=== PATIENT | male | born 1995 | race Caucasian/White ===

== ENCOUNTER 2024-05-08 13:33 | Emergency (ER) | payer SELFPAY ==
[2024-05-08] MEDS ORDERED: METHYLPREDNISOLONE 125 MG INJ ONE (13:57)
--- NOTE | 2024-05-08 14:00 | EDPHYS ---
Physician Documentation [facility] Name: Bonifacio Mcdaniel Age: 28 yrs Sex: Male : 1995 Arrival Date: 05/08/2024 Time: 13:33 Bed 11 Private MD: ED Physician Danny Judd HPI: 05/08 13:55 This 28 yrs old Male presents to ER via Ambulatory with complaints of Rash. rn 13:55 The patient's rash thought to be caused by Dermatitis. The rash is located on the body rn diffusely. Onset: The symptoms/episode began/occurred 5 day(s) ago. Severity of symptoms: At their worst the symptoms were moderate in the emergency department the symptoms are unchanged. Treatment given at home: OTC lotion/cream. The patient has not experienced similar symptoms in the past. Patient reports doing yard work this past weekend, rash that started on his left forearm now spread to torso. Itches. No fever or chills. Thinks might of gotten into some poison osna. Historical: - Allergies: 13:41 No Known Allergies; aa5 - PMHx: 13:41 None; aa5 - Immunization history:: Adult Immunizations unknown. - Infectious Disease History:: Denies. - Social history:: Smoking status: Patient reports the use of cigarette tobacco products, denies chronic smoking, but will smoke occasionally. - Family history:: not pertinent. - Hospitalizations: : No recent hospitalization is reported. ROS: 13:55 Constitutional: Negative for fever, chills, and weight loss, Skin: Positive for skin rn rash and itching Exam: 13:55 Constitutional: This is a well developed, well nourished patient who is awake, alert, rn and in no acute distress. Skin: Warm, erythematous maculopapular rash over arms and torso. No bulla. No desquamation. No fluctuance. Vital Signs: 13:41 BP 149 / 72; Pulse 67; Resp 18 S; Temp 97.2(TE); Pulse Ox 98% on R/A; Weight 86.18 kg aa5 (R); Height 6 ft. 2 in. (R); 14:24 BP 138 / 70; Pulse 64; Resp 16; Pulse Ox 99% ; ko1 13:41 Body Mass Index 24.39 (86.18 kg, 187.96 cm) aa5 MDM: 13:37 Patient medically screened. rn 13:55 Differential diagnosis: allergic reaction, Contact dermatitis. Data reviewed: vital rn signs, nurses notes, and as a result, I will discharge patient. Counseling: I had a detailed discussion with the patient and/or guardian regarding the historical points, exam findings, and any diagnostic results supporting the discharge/admit diagnosis, the need for outpatient follow up, to return to the emergency department if symptoms worsen or persist or if there are any questions or concerns that arise at home. Administered Medications: 14:03 Drug: MethylPREDNISolone Sodium Succinate IM 125 mg IM once Route: IM; Site: left ko1 deltoid; 14:19 Follow up: Response: No adverse reaction ko1 Disposition Summary: 05/08/24 14:00 Discharge Ordered Notes: Location: Home rn Problem: new rn Symptoms: have improved rn Condition: Stable rn Diagnosis - Allergic contact dermatitis due to plants, except food rn Followup: rn - With: Private Physician - When: As needed - Reason: Recheck today's complaints, Re-evaluation by your physician Discharge Instructions: - Discharge Summary Sheet rn - Poison Sona Dermatitis rn Forms: - Medication Reconciliation Form rn - Antibiotic equine internship - Prescription Opioid Use rn - Patient Portal Instructions rn - Leadership Thank You Letter rn - Work release form ko1 Prescriptions: - Hydroxyzine HCl 50 mg Oral Tablet - take 1 tablet ORAL route every 8 hours As needed; 20 tablet; Refills: 0, rn Product Selection Permitted - Medrol (Rajiv) 4 mg Oral Tablets, Dose Pack - take 1 tablet ORAL route as directed - follow package instructions; 1 packet; rn Refills: 0, Product Selection Permitted Signatures: Danny Judd MD MD rn Calderon, Audri RN RN aa5 Delmi Bella RN RN ko1
--- NOTE | 2024-05-08 14:00 | ER ---
Nurse's Notes [facility] Name: Bonifacio Mcdaniel Age: 28 yrs Sex: Male : 1995 Arrival Date: 05/08/2024 Time: 13:33 Bed 11 Private MD: Diagnosis: Allergic contact dermatitis due to plants, except food Presentation: 05/08 13:41 Chief complaint: Patient states: "I was doing yard work last week and Sunday I got this aa5 rash all over". Coronavirus screen: At this time, the client does not indicate any symptoms associated with coronavirus-19. Ebola Screen: Patient denies travel to an Ebola-affected area in the 21 days before illness onset. Initial Sepsis Screen: Does the patient meet any 2 criteria? No. Patient's initial sepsis screen is negative. Does the patient have a suspected source of infection? No. Patient's initial sepsis screen is negative. Risk Assessment: Do you want to hurt yourself or someone else? Patient reports no desire to harm self or others. 13:41 Method Of Arrival: Ambulatory aa5 13:41 Acuity: JOSELINE 4 aa5 13:41 Onset of symptoms was April 2024. aa5 Triage Assessment: 14:25 General: Appears in no apparent distress. Behavior is calm, cooperative, appropriate ko1 for age. Historical: - Allergies: 13:41 No Known Allergies; aa5 - PMHx: 13:41 None; aa5 - Immunization history:: Adult Immunizations unknown. - Infectious Disease History:: Denies. - Social history:: Smoking status: Patient reports the use of cigarette tobacco products, denies chronic smoking, but will smoke occasionally. - Family history:: not pertinent. - Hospitalizations: : No recent hospitalization is reported. Screenin:24 [facility] ED Fall Risk Assessment (Adult) History of falling in the last 3 months, ko1 including since admission No falls in past 3 months (0 pts) Confusion or Disorientation No (0 pts) Intoxicated or Sedated No (0 pts) Impaired Gait No (0 pts) Mobility Assist Device Used No (0 pt) Altered Elimination No (0 pt) Score/Fall Risk Level 0 - 2 = Low Risk Oriented to surroundings, Maintained a safe environment, Educated pt \\T\\ family on fall prevention, incl call for assistance when getting out of bed, Hourly rounding (assess needs \\T\\ fall precautionary measures) done. Abuse screen: Denies threats or abuse. Denies injuries from another. Nutritional screening: No deficits noted. Tuberculosis screening: No symptoms or risk factors identified. Assessment: 14:24 Pain: Denies pain. ko1 Vital Signs: 13:41 BP 149 / 72; Pulse 67; Resp 18 S; Temp 97.2(TE); Pulse Ox 98% on R/A; Weight 86.18 kg aa5 (R); Height 6 ft. 2 in. (R); 14:24 BP 138 / 70; Pulse 64; Resp 16; Pulse Ox 99% ; ko1 13:41 Body Mass Index 24.39 (86.18 kg, 187.96 cm) aa5 ED Course: 13:37 Patient arrived in ED. im 13:37 Danny Judd MD is Attending Physician. rn 13:40 Arm band placed on. aa 13:42 Triage completed. [facility] 13:46 Delmi Bella, RN is Primary Nurse. ko1 14:24 Patient has correct armband on for positive identification. Bed in low position. Call ko1 light in reach. Provided Education on: meds. Door closed. Noise minimized. Lights dimmed. 14:24 No provider procedures requiring assistance completed. Patient did not have IV access ko1 during this emergency room visit. Administered Medications: 14:03 Drug: MethylPREDNISolone Sodium Succinate IM 125 mg IM once Route: IM; Site: left ko deltoid; 14:19 Follow up: Response: No adverse reaction ko1 Medication: 14:24 VIS not applicable for this client. ko1 Outcome: 14:00 Discharge ordered by . rn 14:24 Discharged to home ambulatory, ko1 14:24 Condition: stable 14:24 Discharge instructions given to patient, Instructed on discharge instructions, follow up and referral plans. medication usage, Demonstrated understanding of instructions, follow-up care, medications, Prescriptions given X 2, 14:26 Patient left the ED. ko1 Signatures: Danny Judd MD MD rn Calderon, Audri, RN RN [facility] Delmi Bella RN RN ko1 Alexa Pride
[2024-05-08 15:34] VITALS: TEMP 97.2
[2024-05-08 15:36] VITALS: BP 138/70; O2SAT 99
== END 2024-05-08 14:26 | disposition home or self-care (01) ==
LOC: ER 13:33
DX: L23.7 Allergic contact dermatitis due to plants, except food (principal)
CPT/HCPCS: J2919

== ENCOUNTER 2024-12-02 08:13 | Emergency (ER) | payer OTHER, SELFPAY ==
--- OUTSIDE RECORDS SUMMARY | 2024-12-02 08:16 | XMS REPORT | Continuity of Care Document ---
Author Name Unknown Address [address] [facility] [address] [place] [address] [facility] Address [address] [place] [address] Care Team Providers Care Operations Research Group Manager Name Role Phone PCP, PATIENT DOES NOT HAVE A Primary Care Physic stephanie Unavailable AUDREY BOLAÑOS Attending Clinician Unavailable AUDREY BOLAÑOS Attending Clinician Unavailable Fede SINGH Attending Clinician Unavailable Fede SINGH Attending Clinician Unavailable Fede Ware Attending Clinician [phone] SANCHO EMERY Attending Clinician Unavailable Sancho Emery MD Attending Clinician [phone] Little THORNTON, Aminata Cheney Attending Clinician Unavailable Noreen Ignacio Attending Clinician [phone] Rowan Greene NP Attending Clinician [phone] SANCHO EMERY Admitting Clinician Unavailable Payers Payer Name Policy Type Policy Number Effective Date Expirati on Date Source Intense [facility] [id number] 2024 00:00:00 Problems Condition Name Condition Details Condition Category Status Onset Date Resolution Date Last Treatment Date Treating Clinician Comments Source No known active problems No known active problems Disease [facility] Allergies, Adverse Reactions, Alerts Allergy Name Allergy Type Status Severity Reaction(s) Onset Date Inactive Date Treating Clinician Comments Source NO KNOWN ALLERGIE S Drug Class Active [facility] Social History Social Habit Start Date Stop Date Quantity Comments Source Sexual orientation U [facility] Exposure to SARS-CoV-2 (event) 2022-05-17 00:00:00 2022-05-27 21:35:00 Not sure [facility] Sex assigned at 1995 00:00:00 1995 00:00:00 [facility] Smoking Status Start Date Stop Date Source Tobacco smoking consumption unknown [facility] Medications Ordered Medication Name Filled Medication Name Start Date Stop Date Current Medication? Ordering Clinician Indication Dosage Frequency Signature (SIG) Comments Components Source acetaminoph en (TYLENOL) tablet 1,000 mg 2021-07 0 03:45: 00 05-28 03:39 :00 No 1000mg 1,000 mg, Oral, ONCE, 1 dose, On 05/27/22 at 2245, [facility] LORazepam (ATIVAN) tablet 1 mg 2019-07 07:45: 00 06-08 07:38 :00 No 1mg 1 mg, Oral, ONCE, 1 dose, 06/08/20 at 0145, [facility] NaCl 0.9% (NS) IV infusion 1,000 mL 2019-07 07:15: 00 06-08 07:33 :00 No 1000mL at 500 mL/hr, IV Infusion, ONCE, 1 dose, 06/08/20 at 0115, [facility] fludrocorti sone (FLORINEF) 0.1 mg tablet 2019-07 06:03: 08 06-08 00:00 :00 No .1mg Take 0.1 mg by mouth daily. [facility] metoprolol succinate XL (TOPROL XL) 25 mg 24 hr tablet 2019-07 06:03: 05 06-08 00:00 :00 No 25mg Take 25 mg by mouth daily. [facility] No known medications 2019-07 00:04: 59 No No known medication s [facility] aspirin 81 mg EC tablet 2015-07 00:00: 00 06-08 00:00 :00 No 81mg Take 1 tablet by mouth daily. [facility] No known medications No Un deepthi [facility] Vital Signs Vital Name Observation Time Observation Value Comments S stiven Systolic blood pressure 2024-04-10 15:33:00 139 mm[Hg] [facility] Diastolic blood pressure 2024-04-10 15:33:00 96 mm[Hg] [facility] Heart rate 2024-04-10 15:33:00 86 /min Unive [facility] Body temperature 2024-04-10 15:33:00 37.11 [facility] Respiratory rate 2024-04-10 15:33:00 14 /min [facility] Body height 2024-04-10 15:33:00 185.4 cm [facility] Body weight 2024-04-10 15:33:00 84.823 kg [facility] BMI 2024-04-10 15:33:00 24.67 kg/m2 [facility] Oxygen saturation in Arterial blood by Pulse oximetry 2024-04-10 15:33:00 99 /min [facility] Systolic blood pressure 2022-05-28 04:01:00 112 mm[Hg] [facility] Diastolic blood pressure 2022-05-28 04:01:00 63 mm[Hg] [facility] Heart rate 2022-05-28 04:01:00 85 /min Unive [facility] Respiratory rate 2022-05-28 04:01:00 16 /min [facility] Oxygen saturation in Arterial blood by Pulse oximetry 2022-05-28 04:01:00 95 /min [facility] Body temperature 2022-05-28 04:00:00 36 [facility] Body height 2022-05-28 02:40:58 188 cm [facility] Body weight 2022-05-28 02:40:58 86.183 kg [facility] BMI 2022-05-28 02:40:58 24.39 kg/m2 [facility] Systolic blood pressure 2020-06-08 08:00:00 127 mm[Hg] [facility] Diastolic blood pressure 2020-06-08 08:00:00 77 mm[Hg] [facility] Heart rate 2020-06-08 08:00:00 58 /min [facility] Respiratory rate 2020-06-08 08:00:00 13 /min [facility] Oxygen saturation in Arterial blood by Pulse oximetry 2020-06-08 08:00:00 98 /min [place] Body temperature 2020-06-08 06:01:00 37.11 [facility] Body height 2020-06-08 06:01:00 182.9 cm [facility] Body weight 2020-06-08 06:01:00 82.101 kg [facility] BMI 2020-06-08 06:01:00 24.55 kg/m2 [facility] Procedures Procedure Date / Time Performed Performing Clinicia n Source CT CERVICAL SPINE WO CONTRAST 2022-05-28 03:22:00 [address] [facility] CT HEAD WO CONTRAST 2022-05-28 03:22:00 Sancho Emery [facility] NOTICE OF PRIVACY PRACTICES 2022-05-28 02:31:10 Doctor Unassigned, [facility] CONSENT/REFUSAL FOR DIAGNOSIS AND TREATMENT 2022-05-28 02:30:01 Doctor Unassigned, [facility] XR CHEST 1 VW 2020-06-08 06:45:33 Rowan Greene [facility] CBC WITH DIFF 2020-06-08 06:26:00 Rowan Greene [facility] URINALYSIS 2020-06-08 06:26:00 Rowan Greene [facility] LIPASE 2020-06-08 06:26:00 Rowan Greene [facility] TROPONIN I 2020-06-08 06:26:00 Rowan Greene [facility] HEPATIC FUNCTION PANEL (82214) (ALB,T.PRO,BILI T,BU/BC,ALT,AST,ALK PHOS) 2020-06-08 06:26:00 Rowan Greene [facility] BASIC METABOLIC PANEL (NA, K, CL, CO2, GLUCOSE, BUN, CREATININE, CA) 2020-06-08 06:26:00 Rowan Greene [facility] NOTICE OF PRIVACY PRACTICES 2020-06-08 05:54:55 Doctor Unassigned, [facility] CONSENT/REFUSAL FOR DIAGNOSIS AND TREATMENT 2020-06-08 05:54:35 Doctor Unassigned, [facility] Encounters Start Date/Time End Date/Time Encounter Type Admission Type Attending [facility] Facility Care Department Encounter ID Source 2024-10-06 05:46:00 2024-10-06 06:51:00 Emergency Arjun MAMIAUDREY TIMOTHY [facility] ERT [id number] [facility] 2024-04-10 10:35:00 2024-04-10 12:05:00 Emergency X Fede SINGH K [facility] ERT [id number] [facility] 2024-04-10 10:35:00 2024-04-10 12:05:00 Emergency Fede Singh [facility] 1..114 [id number] [id number] [id number] [facility] 2022-05-27 21:41:00 2022-05-27 23:14:00 Emergency SANCHO MUJICA [facility] ERT [id number] [facility] 2022-05-27 21:41:00 2022-05-27 23:14:00 Emergency Sancho Emery [facility] 1..114 [id number] [id number] [id number] [facility] 2022-05-27 00:00:00 2022-05-27 00:00:00 Nurse Triage Aminata Fitch [facility] 1..114 [id number] [id number] [id number] [facility] 2020-07-08 00:00:00 2020-07-08 00:00:00 Letter (Out) Noreen Mendoza [facility] 1.2.114 [id number] 4.2.7.2.686 [id number] [facility] 2020-06-08 00:15:00 2020-06-08 03:46:00 Emergency Rowan Greene [facility] [id number] [id number] [id number] [facility] 2020-06-07 23:53:00 2020-06-07 23:53:00 Emergency X [facility] ERT [id number] [facility] Results Test Description Test Time Test Comments Results Result Co mments Source [facility]00* Test Item Value Reference Range Interpretation Comme nts APPEARANCE (test code = 3509358757) Clear Clear COLOR (test code = 2101170121) Straw Yellow A PH (test code = 6421037399) 4.8-8.0 SP GRAVITY (test code = 8591602882) 1.003-1.030 GLU U QUAL (test code = 3056350062) Normal Normal BLOOD (test code = 2584612880) Negative Negative KETONES (test code = 1668865738) Negative Negative PROTEIN (test code = 2887-8) Negative Negative UROBILIN (test code = 1321190643) Normal Normal BILIRUBIN (test code = 3722206161) Negative Negative NITRITE (test code = 3261938085) Negative Negative LEUK DARRION (test code = 2797502345) Negative Negative RBC/HPF (test code = 3101813731) See_Comment [Automated [employer]] The system which generated this result transmitted reference range: 0 - 3 HPF. The reference range was not used to interpret this result as normal/abnormal. WBC/HPF (test code = 6136953482) See_Comment [Automated [employer]] The system which generated this result transmitted reference range: 0 - 5 HPF. The reference range was not used to interpret this result as normal/abnormal. BACTERIA (test code = 6889978934) Negative Negative AMORPHOUS (test code = 8296520584) Rare Rare HPF Lab Interpretation (test code = 07170-1) [facility]normal [facility] (NA, K, CL, CO2, GLUCOSE, BUN, CREATININE, CA)2020-06-08 06:52:00* Test Item Value Reference Range Interpretation Comme nts NA (test code = 7409701957) 139 mmol/L 135-145 K (test code = 0415280568) 3.9 mmol/L 3.5-5 CL (test code = 5896667740) 102 mmol/L 98-108 CO2 TOTAL (test code = 4315654570) 30 mmol/L 23-31 AGAP (test code = 2903621157) 2-16 BUN (test code = 7928920710) 13 mg/dL 7-23 GLUCOSE (test code = 7807953512) 100 mg/dL 70-110 CREATININE (test code = 1214418673) 0.86 mg/dL 0.6-1.25 CALCIUM (test code = 7899614009) 10.1 mg/dL 8.6-10.6 eGFR Calculation (Non-) (test code = 9980767718) mL/min/1.73m2 eGFR Calculation () (test code = 1349339699) mL/min/1.73m2 [place] (test code = TR[place]ON) Association of Glomerular Filtration Rate (GFR) and Staging of Kidney Disease* + -+ + ---+| GFR (mL/min/1.73 m2) ?| With Kidney Damage ?| ?Without Kidney Damage+ -------+ ------+ ---------+| ?>90 ?| ?Stage one ?| ? Normal ?+ --+ -+ ----+| ?60-89 ?| ?Stage two ?| ? Decreased GFR ? + -+ + ---+| ?30-59 ?| ?Stage three ?| ? Stage three ? + -+ + ---+| ?15-29 ?| ?Stage four ? | ? Stage four ?+ --+ -+ ----+| ?<15 (or dialysis) ? ?| ?Stage five ? | ? Stage five ?+ --+ -+ ----+ *Each stage assumes the associated GFR level has been in effect for at least three months. ?Stages 1 to 5, with or without kidney disease, indicate chronic kidney disease. Notes: Determination of stages one and two (with eGFR >59mL/min/1.73 m2) requires estimation of kidney damage for at least three months as defined by structural or functional abnormalities of the kidney, manifested by either:Pathological abnormalities or Markers of kidney damage (including abnormalities in the composition of the blood or urine or abnormalities in imaging tests). [facility] (ALB, T.PRO, BILI T, BU/BC, ALT, AST, ALK PHOS)2020-06-08 06:52:00* Test Item Value Reference Range Interpretation Comme nts TOTAL BILI (test code = 6838208763) 0.6 mg/dL 0.1-1.1 BILI UNCON (test code = 7531569169) 0.5 mg/dL 0.1-1.1 BILI CONJ (test code = 7529607933) 0.0 mg/dL 0-0.3 T PROTEIN (test code = 4491578302) 7.6 g/dL 6.3-8.2 ALBUMIN (test code = 8842510284) 4.7 g/dL 3.5-5 ALK PHOS (test code = 4449000715) 66 U/L 34-122 ALTv (test code = 1742-6) 22 U/L 5-50 AST(SGOT) (test code = 8983922376) 27 U/L 13-40 Lab Interpretation (test cod e = 94299-0) Normal [facility] [id number] 06:52:00* Test Item Value Reference Range Interpretation Comme nts LIPASE (test code = 6830246853) 62 U/L 0-220 Lab Interpretation (test cod e = 12939-9) Normal [facility] with [id number] 06:38:00* Test Item Value Reference Range Interpretation Comme nts WBC (test code = 6690-2) See_Comment [[employer]ated [employer]] The system which generated this result transmitted reference range: 4.20 - 10.70 10*3/?L. The reference range was not used to interpret this result as normal/abnormal. RBC (test code = 789-8) See_Comment [[employer]ated [employer]] The system which generated this result transmitted reference range: 4.26 - 5.52 10*6/?L. The reference range was not used to interpret this result as normal/abnormal. HGB (test code = 718-7) 15.7 g/dL 12.2-16.4 HCT (test code = 4544-3) 43.4 % 38.4-49.3 MCV (test code = 787-2) 86.3 fL 81.7-95.6 MCH (test code = 785-6) 31.2 pg 26.1-32.7 MCHC (test code = 786-4) 36.2 g/dL 31.2-35 H RDW-SD (test code = 42189-4) 34.9 fL 38.5-51.6 L RDW-CV (test code = 788-0) 11.1 % 12.1-15.4 L PLT (test code = 777-3) See_Comment [Automated messa ge] The system which generated this result transmitted reference range: 150 - 328 10*3/?L. The reference range was not used to interpret this result as normal/abnormal. MPV (test code = 08069-6) 9.3 fL 9.8-13 L NRBC/100 WBC (test code = 8299372295) See_Comment [Automated [employer]] The system which generated this result transmitted reference range: 0.0 - 10.0 /100 WBCs. The reference range was not used to interpret this result as normal/abnormal. NRBC x10^3 (test code = 7691297386) <0.01 See_Comment [Automated messa ge] The system which generated this result transmitted reference range: 10*3/?L. The reference range was not used to interpret this result as normal/abnormal. GRAN MAT (NEUT) % (test code = 770-8) 43.0 % IMM GRAN % (test code = 5494883422) 0.20 % LYMPH % (test code = 736-9) 46.0 % MONO % (test code = 5905-5) 9.2 % EOS % (test code = 713-8) 1.1 % BASO % (test code = 706-2) 0.5 % GRAN MAT x10^3(ANC) (test code = 3941176793) 2.73 10*3/uL 1.99-6.95 IMM GRAN x10^3 (test code = 0039100410) <0.03 0-0.06 LYMPH x10^3 (test code = 731-0) 2.91 10*3/uL 1.09-3.23 MONO x10^3 (test code = 742-7) 0.58 10*3/uL 0.36-1.02 EOS x10^3 (test code = 711-2) 0.07 10*3/uL 0.06-0.53 BASO x10^3 (test code = 704-7) 0.03 10*3/uL 0.01-0.09 Lab Interpretation (test code = 15085-0) Abnormal [facility] Notes Date/Time Note Provider Source 2024-04-10 11:50:00 Written/verbal d/c instructions, out of er no distress [facility] 2024-04-10 10:32:53 Nathalia Blood is a 28 year old male c/o hemorrhoid pain and bleeding for 4 days T Brittney Casiano RN [facility]"
[2024-12-02] MEDS ORDERED: ONDANSETRON 4 MG/2 ML VIAL ONE (08:45)
[2024-12-02] MEDS ORDERED: KETOROLAC 30 MG/ML INJ ONE (08:45)
[2024-12-02] MEDS ORDERED: NA CHLORIDE 0.9% 1,000 ML ONE (08:45)
[2024-12-02 09:13] LABS: Specific Gravity < 1.005 (1.005-1.030); Urine Bilirubin NEGATIVE (Negative); Urine Blood Negative (Negative); Urine Clarity Clear (Clear); Urine Color Colorless (Yellow); Urine Glucose NEGATIVE (Negative); Urine Ketones NEGATIVE (Negative); Urine Microscopic Reflex YN NO UMIC; Urine Nitrite NEGATIVE (Negative); Urine Protein NEGATIVE (Negative); Urine Urobilinogen Normal (Normal); Urine pH 6.5 (5.0-7.0)
[2024-12-02 09:15] LABS: Absolute Lymphocytes (CBC) 1.9 K/uL (0.7-4.9); Absolute Monocytes 0.5 K/uL (0.1-1.3); Absolute Neutrophil 2.6 K/uL (1.8-8.0); Basophils % 0.4 % (0-1.3); Eosinophils % 0.9 % (0-4.4); Hematocrit 44.5 % (39.6-49.0); Hemoglobin 16.1 g/dL (13.6-17.9); MCH 32.1 pg (27.0-35.0); MCHC 36.3 g/dL (32.0-36.0); MCV 88.5 fL (80-100); MPV 7.4 fL (7.6-11.3); Monocytes % 9.4 % (3.3-12.3); Neutrophils % 52.3 % (41.7-73.7); Nucleated Red Blood Cells % 0.1 % (0-0); Platelets 255 thou/uL (152-406); RBC Red Blood Cell Count 5.03 M/uL (4.33-5.43); Red Cell Distribution Width 12.6 % (12.1-15.2)
[2024-12-02 09:30] LABS: Albumin 4.1 g/dL (3.4-5.0); Albumin/Globulin Ratio 1.3 (1.1-1.8); Anion Gap 7.6 mEq/L (5.0-15.0); Bilirubin Total 0.5 mg/dL (0.2-1.0); Globulin 3.1 g/dL (2.3-3.5); Potassium 3.6 mEq/L (3.5-5.1); Protein, Total 7.2 g/dL (6.4-8.2)
--- NOTE | 2024-12-02 10:11 | RAD REPORT ---
EXAMINATION: CTA CHEST PE CLINICAL INDICATION: CHEST PAIN TECHNIQUE: This examination was performed according to an angiographic protocol with 3D post-processi ng. This involves 3D reconstructions, MIPs, volume rendered images and/or shaded surface rendering. One or more of the following dose reduction techniques were used: Automated exposure control, adjustm ent of the mA and/or kV according to patient size, and/or iterative reconstruction. Unless otherwise specified, incidental findings do not require dedicated imaging follow-up. COMPARISON: No prior exam. FINDINGS: PULMONARY ARTERIES: Normal caliber. No evidence of pulmonary emboli to the subsegmental level. THORACIC AORTA: Normal caliber and configuration. LUNGS: No evidence of airspace or interstitial process. No nodules. PLEURA: No pleural effusion. No pneumothorax. MEDIASTINUM AND LYMPH NODES: No mediastinal mass or fluid collection. Normal size mediastinal, hilar, and axillary lymph nodes. OSSEOUS STRUCTURES AND CHEST WALL: Intact. UPPER ABDOMEN: No significant abnormalities. IMPRESSION: No evidence of pulmonary emboli to the subsegmental level.
--- NOTE | 2024-12-02 10:21 | RAD REPORT ---
EXAMINATION: CT ABDOMEN AND PELVIS WITH CONTRAST CLINICAL INDICATION: ABD PAIN TECHNIQUE: CT abdomen and pelvis was performed, after the administration of IV contrast, as per [facility] protocol. Axial, sagittal and coronal reconstructions were obtained. One or more of the following dose reduction techniques were used: Automated exposure control, adjustment of the mA and k V according to patient size, and iterative reconstruction. Unless otherwise specified, incidental findings do not require dedicated imaging follow-up. COMPARISON: No prior exam. FINDINGS: LOWER CHEST: The visualized lung bases are clear. LIVER: Normal in size and contour. No focal lesion. Grossly unremarkable gallbladder. SPLEEN: Normal size. No focal lesion. PANCREAS: No mass, ductal dilation, or karena-pancreatic fluid. ADRENALS: Normal; no mass. KIDNEYS: Normal size and contour. No hydronephrosis. 23 mm benign cyst right kidney. GASTROINTESTINAL TRACT: No evidence of free air, significant intra-abdominal free fluid, bowel obstru ction or abscess. APPENDIX: Normal appendix. LYMPH NODES: No lymphadenopathy. MUSCULOSKELETAL: No acute or suspicious osseous abnormality. ADDITIONAL FINDINGS: None. IMPRESSION: No acute or concerning abnormalities seen in the abdomen or pelvis.
--- NOTE | 2024-12-02 10:35 | EDPHYS ---
Physician Documentation [facility] Name: Bonifacio Mcdaniel Age: 29 yrs Sex: Male : 1995 Arrival Date: 12/02/2024 Time: 08:13 Bed 14 Private MD: ED Physician Herberth Almonte HPI: 12/02 10:31 This 29 yrs old Male presents to ER via Ambulatory with complaints of Abdominal Pain. david 10:31 The patient presents with pain that is acute, with no known mechanism of injury. The david symptoms are located in the low back. Historical: - Allergies: 08:31 No Known Allergies; hb - Home Meds: 08: None [Active]; hb - PMHx: 08: None; hb - PSHx: 08: None; hb - Immunization history:: Adult Immunizations up to date. - Infectious Disease History:: Denies. - Social history:: Smoking status: Patient denies any tobacco usage or history of. ROS: 10:32 Constitutional: Negative for fever, chills, and weight loss, Eyes: Negative for injury, david pain, redness, and discharge, ENT: Negative for injury, pain, and discharge, Neck: Negative for injury, pain, and swelling, Cardiovascular: Negative for chest pain, palpitations, and edema, Respiratory: Negative for shortness of breath, cough, wheezing, and pleuritic chest pain, Back: Negative for injury and pain, : Negative for injury, bleeding, discharge, and swelling, MS/Extremity: Negative for injury and deformity, Skin: Negative for injury, rash, and discoloration, Neuro: Negative for headache, weakness, numbness, tingling, and seizure, Psych: Negative for depression, anxiety, suicide ideation, homicidal ideation, and hallucinations, Allergy/Immunology: Negative for hives, rash, and allergies, Endocrine: Negative for neck swelling, polydipsia, polyuria, polyphagia, and marked weight changes, Hematologic/Lymphatic: Negative for swollen nodes, abnormal bleeding, and unusual bruising, 10:32 Abdomen/GI: Positive for abdominal pain, of the anterior aspect of right lateral abdomen, posterior aspect of right lateral abdomen and left upper quadrant, Exam: 10:32 Constitutional: This is a well developed, well nourished patient who is awake, alert, david and in no acute distress. Head/Face: Normocephalic, atraumatic. Eyes: Pupils equal round and reactive to light, extra-ocular motions intact. Lids and lashes normal. Conjunctiva and sclera are non-icteric and not injected. Cornea within normal limits. Periorbital areas with no swelling, redness, or edema. ENT: Nares patent. No nasal discharge, no septal abnormalities noted. Tympanic membranes are normal and external auditory canals are clear. Oropharynx with no redness, swelling, or masses, exudates, or evidence of obstruction, uvula midline. Mucous membranes moist. Neck: Trachea midline, no thyromegaly or masses palpated, and no cervical lymphadenopathy. Supple, full range of motion without nuchal rigidity, or vertebral point tenderness. No Meningismus. Chest/axilla: Normal chest wall appearance and motion. Nontender with no deformity. No lesions are appreciated. Cardiovascular: Regular rate and rhythm with a normal S1 and S2. No gallops, murmurs, or rubs. Normal PMI, no JVD. No pulse deficits. Respiratory: Lungs have equal breath sounds bilaterally, clear to auscultation and percussion. No rales, rhonchi or wheezes noted. No increased work of breathing, no retractions or nasal flaring. Back: No spinal tenderness. No costovertebral tenderness. Full range of motion. Male : Normal genitalia with no discharge or lesions. Skin: Warm, dry with normal turgor. Normal color with no rashes, no lesions, and no evidence of cellulitis. MS/ Extremity: Pulses equal, no cyanosis. Neurovascular intact. Full, normal range of motion., bilateral aka Neuro: Awake and alert, GCS 15, oriented to person, place, time, and situation. Cranial nerves II-XII grossly intact. Motor strength 5/5 in all extremities. Sensory grossly intact. Cerebellar exam normal. Normal gait. Psych: Awake, alert, with orientation to person, place and time. Behavior, mood, and affect are within normal limits. 10:32 Abdomen/GI: Inspection: abdomen appears normal, 10:34 Skin: no rash present. [facility] Vital Signs: 08:30 BP 161 / 89; Pulse 84; Resp 16; Temp 97.9(O); Pulse Ox 100% on R/A; Weight 96.16 kg; hb Height 6 ft. 1 in. ; Pain 5/10; 08:45 BP 142 / 86; Pulse 73; Resp 16; Pulse Ox 99% on R/A; db 09:30 BP 134 / 76; Pulse 65; Resp 16; Pulse Ox 97% on R/A; db 10:00 BP 143 / 75; Pulse 65; Resp 16; Pulse Ox 98% on R/A; db 10:30 BP 134 / 76; Pulse 57; Resp 16; Pulse Ox 99% on R/A; db 08:30 Body Mass Index 27.97 (96.16 kg, 185.42 cm) hb 08:30 Pain Scale: Adult hb MDM: 08:19 Medical Screening Exam initiated david 10:33 Differential diagnosis: arthritis, strain, fracture, contusion, Herniated disc UTI, david appendicitis, bowel obstruction, coronary artery disease. Data reviewed: vital signs, nurses notes, lab test result(s), radiologic studies, CT scan. Consideration of Admission/Observation Escalation of care including admission/observation considered. I considered the following discharge prescriptions or medication management in the emergency department Medications were administered in the Emergency Department. See MAR. Independent interpretation of the following test(s) in the Emergency Department EKG: See my EKG interpretation above. Test considered but Not performed: Ultrasound NO ABD USG. Care significantly affected by the following chronic conditions: NONE. Counseling: I had a detailed discussion with the patient and/or guardian regarding the historical points, exam findings, and any diagnostic results supporting the discharge/admit diagnosis, lab results, radiology results, the need for outpatient follow up, for definitive care, a family practitioner. 12/02 08:21 Order name: CBC with Diff; Complete Time: 10:[address] [facility] 12/02 08:21 Order name: CMP; Complete Time: 10:[address] [facility] 12/02 08:21 Order name: UA Rfx Spencer Cult if indicated; Complete Time: 10:[address] [facility] 12/02 08:32 Order name: Lipase; Complete Time: 10:[address] [facility] 12/02 08:32 Order name: CT Abd/Pelvis - IV Contrast Only; Complete Time: 10:[address] [facility] 12/02 08:32 Order name: CT Chest For PE Angio; Complete Time: 10:[address] [facility] Administered Medications: 08:32 CANCELLED (Duplicate Order): Decadron - [id number] mg IVP once david 09:00 Drug: NS 0.9% IV 1000 ml IV at 1000 ml once; to be given as a bolus over 60 minutes db Route: IV; Rate: 1000 ml; Site: left antecubital; 10:52 Follow up: Response: No adverse reaction; IV Status: Completed infusion; IV Intake: db 1000ml 09:00 Drug: Ketorolac IVP 30 mg IVP once Route: IVP; Site: left antecubital; db 10:52 Follow up: Response: No adverse reaction db 09:00 Drug: Ondansetron IVP 4 mg IVP once; over 2 minutes Route: IVP; Site: left antecubital; db 10:52 Follow up: Response: No adverse reaction db Disposition Summary: 12/02/24 10:35 Discharge Ordered Notes: Location: Home david Problem: new david Symptoms: have improved david Condition: Stable david Diagnosis - Abdominal pain, Generalized david - Strain of muscle and tendon of back wall of thorax david - Strain of muscle and tendon of front wall of thorax david - Unspecified symptoms and signs involving the musculoskeletal system david Followup: david - With: Private Physician - When: 2 - 3 days - Reason: Recheck today's complaints, Continuance of care, Re-evaluation by your physician Discharge Instructions: - Discharge Summary Sheet david - Abdominal Pain, Adult david - Musculoskeletal Pain david - Abdominal Pain, Adult, [id number] david Forms: - Medication Reconciliation Form david - Antibiotic Education david - Prescription Opioid Use david - Patient Portal Instructions david - Leadership Thank You Letter david - Work release form db Prescriptions: - Ibuprofen 600 mg Oral tablet - take 1 tablet ORAL route every 6 hours As needed take with food; 20 tablet; [facility] Refills: 0, Product Selection Permitted Signatures: Dispatcher [employer] EDHerberth Lindo MD MD cha Baxter, Heather, RN RN Marifer Pratt RN RN db Corrections: (The following items were deleted from the chart) 08:32 08:21 Decadron - Dexamethasone IVP 10 mg IVP once ordered. david david 08:32 08:32 Abdomen Pelvis W Con+CT.RAD.BRZ ordered. EDMS EDMS 08:32 08:32 Chest For PE Angio+CT.RAD.BRZ ordered. EDMS EDMS 08:33 08:33 LIPASE+C.LAB.BRZ ordered. EDMS EDMS 09:06 08:21 Spine Lumbar Wo Con+CT.RAD.BRZ ordered. EDMS EDMS
--- NOTE | 2024-12-02 10:35 | ER ---
Nurse's Notes [facility] Name: Bonifacio Mcdaniel Age: 29 yrs Sex: Male : 1995 Arrival Date: 12/02/2024 Time: 08:13 Bed 14 Private MD: Diagnosis: Abdominal pain, Generalized;Strain of muscle and tendon of back wall of thorax;Strain of muscle and tendon of front wall of thorax;Unspecified symptoms and signs involving the musculoskeletal system Presentation: 12/02 08:30 Chief complaint: Worsening LUQ pain x 3-4 days. Coronavirus screen: At this time, the hb client does not indicate any symptoms associated with coronavirus-19. Ebola Screen: No symptoms or risks identified at this time. Initial Sepsis Screen: Does the patient meet any 2 criteria? No. Patient's initial sepsis screen is negative. Does the patient have a suspected source of infection? No. Patient's initial sepsis screen is negative. Risk Assessment: Do you want to hurt yourself or someone else? Patient reports no desire to harm self or others. Onset of symptoms was November 29, 2024. 08:30 Method Of Arrival: Ambulatory 08:30 Acuity: JOSELINE 3 hb Historical: - Allergies: 08:31 No Known Allergies; hb - Home Meds: 08:31 None [Active]; hb - PMHx: 08:31 None; hb - PSHx: 08:31 None; hb - Immunization history:: Adult Immunizations up to date. - Infectious Disease History:: Denies. - Social history:: Smoking status: Patient denies any tobacco usage or history of. Screenin:57 [facility] ED Fall Risk Assessment (Adult) History of falling in the last 3 months, db including since admission No falls in past 3 months (0 pts) Confusion or Disorientation No (0 pts) Intoxicated or Sedated No (0 pts) Impaired Gait No (0 pts) Mobility Assist Device Used No (0 pt) Altered Elimination No (0 pt) Score/Fall Risk Level 0 - 2 = Low Risk Oriented to surroundings, Maintained a safe environment. Abuse screen: Denies threats or abuse. Denies injuries from another. Nutritional screening: No deficits noted. Tuberculosis screening: No symptoms or risk factors identified. Assessment: 09:55 Reassessment: Patient appears in no apparent distress at this time. Patient and/or db family updated on plan of care and expected duration. Pain level reassessed. Patient is alert, oriented x 3, equal unlabored respirations, skin warm/dry/pink. General: Appears in no apparent distress. comfortable, Behavior is calm, cooperative. Pain: Complains of pain in abdomen. Neuro: Level of Consciousness is awake, alert, obeys commands, Oriented to person, place, time, situation. Respiratory: Airway is patent Respiratory effort is even, unlabored, Respiratory pattern is regular, symmetrical. 10:30 Reassessment: Patient appears in no apparent distress at this time. Patient and/or db family updated on plan of care and expected duration. Pain level reassessed. Patient is alert, oriented x 3, equal unlabored respirations, skin warm/dry/pink. Vital Signs: 08:30 BP 161 / 89; Pulse 84; Resp 16; Temp 97.9(O); Pulse Ox 100% on R/A; Weight 96.16 kg; hb Height 6 ft. 1 in. ; Pain 5/10; 08:45 BP 142 / 86; Pulse 73; Resp 16; Pulse Ox 99% on R/A; db 09:30 BP 134 / 76; Pulse 65; Resp 16; Pulse Ox 97% on R/A; db 10:00 BP 143 / 75; Pulse 65; Resp 16; Pulse Ox 98% on R/A; db 10:30 BP 134 / 76; Pulse 57; Resp 16; Pulse Ox 99% on R/A; db 08:30 Body Mass Index 27.97 (96.16 kg, 185.42 cm) hb 08:30 Pain Scale: Adult hb ED Course: 08:16 Patient arrived in ED. al6 08:19 Herberth Almonte MD is Attending Physician. david 08:31 Triage completed. hb 08:31 Arm band placed on. hb 08:40 Marifer Pratt, HILLARY is Primary Nurse. db 08:58 Initial lab(s) drawn, by me, sent to lab. Urine collected: clean catch specimen. db Inserted saline lock: 20 gauge in left antecubital area, using aseptic technique. Blood collected. Flushed with 10 mL NS. 09:13 Patient has correct armband on for positive identification. Call light in reach. Side db rails up X 1. Pulse ox on. NIBP on. Warm blanket given. Pillow given. 09:49 CT Abd/Pelvis - IV Contrast Only In Process Unspecified. EDMS 09:49 CT Chest For PE Angio In Process Unspecified. EDMS 09:[address] db 10:51 Provided Education on: DISCHARGE, PRESCRIPTIONS AND FOLLOWUP. db 10:51 No provider procedures requiring assistance completed. IV discontinued, intact, db bleeding controlled, No redness/swelling at site. Administered Medications: 08:32 CANCELLED (Duplicate Order): Decadron - [id number] mg IVP once [facility] 09:00 Drug: NS 0.9% IV 1000 ml IV at 1000 ml once; to be given as a bolus over 60 minutes db Route: IV; Rate: 1000 ml; Site: left antecubital; 10:52 Follow up: Response: No adverse reaction; IV Status: Completed infusion; IV Intake: db 1000ml 09:00 Drug: Ketorolac IVP 30 mg IVP once Route: IVP; Site: left antecubital; db 10:52 Follow up: Response: No adverse reaction db 09:00 Drug: Ondansetron IVP 4 mg IVP once; over 2 minutes Route: IVP; Site: left antecubital; db 10:52 Follow up: Response: No adverse reaction db Medication: 10:51 VIS not applicable for this client. db Intake: 10:52 IV: 1000ml; Total: 1000ml. db Outcome: 10:35 Discharge ordered by . david 10:50 Discharged to home ambulatory, db 10:50 Condition: stable 10:50 Discharge instructions given to patient, Instructed on discharge instructions, follow up and referral plans. Prescriptions given X 3, 10:52 Patient left the ED. db Signatures: Dispatcher [employer] Herberth Naqvi MD MD cha Baxter, Heather, RN RN Marifer Peraza, RN RN Madelyn Raza al6
[2024-12-02 14:15] VITALS: TEMP 98.3; O2SAT 100
[2024-12-02 14:17] VITALS: BP 107/66
== END 2024-12-02 10:52 | disposition home or self-care (01) ==
LOC: ER 08:13
DX: S29.012A Strain of muscle and tendon of back wall of thorax, initial encounter (principal); S29.011A Strain of muscle and tendon of front wall of thorax, initial encounter; R29.91 Unspecified symptoms and signs involving the musculoskeletal system
CPT/HCPCS: 96361; 85025; 36415; 81003; 83690; 80053; 71275; 74177; 96375; 96374; 99285; Q9967; J7030; J2405